=== PATIENT | female | born 1980 | race Caucasian/White ===

== ENCOUNTER 2016-05-25 08:06 | Emergency (ER) ==
[2016-05-25 08:14] VITALS: BP 142/88
--- NOTE | 2016-05-25 08:31 | PROVIDER DOCUMENTATION ---
[facility] General - General Chief Complaint: Sore Throat Stated Complaint: SORE THROAT Time Seen by Provider: 05/25/16 08:25 Source: patient Allergies/Adverse Reactions: Patient Allergies Allergy/AdvReac Type Severity Reaction Status Date / Time No Known Allergies Allergy Verified 03/31/15 07:10 Home Medications: Hctz 25 mg PO DAILY 03/31/15 Lamotrigine [Lamictal] 100 mg PO DAILY 03/31/15 Topiramate [Topamax] 100 mg PO DAILY 03/31/15 Venlafaxine E.r. [Effexor Xr] 75 mg PO DAILY 03/31/15 - History of Present Illness-EENT General Nature of Presenting Problem: thursday got sick cough phlegm laryngitis EENT Location: reports: ear (L), throat Quality of Pain: reports: aching Severity: reports: moderate Onset/Duration: reports: 4 days ago Timing: reports: still present Prearrival Treatment: Initiated over the counter meds Associated Symptoms: reports: cough, fever, malaise, nasal congestion/drainage, sore throat, voice change Locality of Occurance: Home Similar Symptoms Previously?: Yes Recently seen or treated by another doctor?: No Review of Systems - Adult - REVIEW OF SYSTEMS - ADULT Constitutional: reports: chills, fever. denies: night sweats Eyes: denies: discharge, dry eyes, eye pain, redness Ears, Nose, Mouth & Throat: reports: sinus problem, hoarseness, throat pain Cardiovascular: reports: chest pain. denies: palpitations Respiratory: reports: cough, excessive sputum production, shortness of breath, wheezing Gastrointestinal: denies: abdominal pain, nausea, vomiting Genitourinary: denies: dysuria, frequency, hematuria Musculoskeletal: reports: joint pain, muscle aches Integumentary: reports: no symptoms reported Neurological: reports: headache/migraines Endocrine: reports: no symptoms reported Hematologic/Lymphatic: reports: no symptoms reported Allergic/Immunologic: reports: no symptoms reported. denies: allergic rhinitis , asthma Past History - Adult - PAST MEDICAL HISTORY-ADULT Review of Records: reports: Nursing Assessment Review, Medications Reviewed, Social history reviewed & non-contributory. Major Childhood Illnesses: reports: denies history Cardiovascular: reports: HTN Respiratory: reports: denies history Gastrointestinal: reports: denies history Obstetrical/Gynecological: reports: denies history Genitourinary: reports: denies history Musculoskeletal: reports: denies history Neurological: reports: Seizures/Epilepsy Psychiatric: reports: bipolar Endocrine/Immune: reports: denies history Other Conditions: reports: denies history - PRIOR SURGERIES/PROCEDURES Surgical/Procedure History: reports: hysterectomy - FAMILY HISTORY Family History: reviewed, not pertinent - SOCIAL HISTORY Smoking: cigarettes Physical Exam- EENT - Physical Exam EENT Initial Vital Signs Reviewed: Yes General Appearance: appears well, alert Eye Exam: bilateral eye: normal inspection, PERRL, EOMI Ear Exam: bilateral ear: auricle normal, canal normal, TM normal Nasal Exam: normal inspection Throat Exam: voice changes. negative: maxillary swelling, pharynx swelling, tonsillar exudate, tonsillar swelling, uvula swelling Neck: supple Respiratory: lungs clear Cardiovascular: regular rate, rhythm Abdominal Exam: soft Back Exam: normal inspection Extremity: normal range of motion Integumentary: normal color, normal turgor Neurologic: grossly normal Psych/Mental Status: normal mood/affect Departure - Departure Time of Disposition Order: 08:31 DIAGNOSIS: Laryngitis URI (upper respiratory infection) Qualifiers: URI type: unspecified viral URI Qualified Code(s): J06.9 - Acute upper respiratory infection, unspecified; B97.89 - Other viral agents as the cause of diseases classified elsewhere Disposition: HOME 01 Certified Medical Emergency: Emergent Condition: Stable Additional Instructions: ED Follow Up Instructions: You have been treated by a care provider in the Emergency Department. These instructions are being provided to you so you can have an understanding of how to care for yourself upon discharge. Upon discharge from the Emergency Department, you are responsible for making arrangements for follow-up care by a physician of your choice. Take all prescribed medications as directed. Return to the Emergency Department immediately for any new or worsening symptoms. You may call the Physician Referral phone number at [phone] to obtain a list of Physicians who are taking new patients. Prescriptions: Guaifenesin/Codeine [Robitussin-AC] 10 ml PO Q4H PRN PRN #4 oz PRN Reason: Cough Amoxicillin 875 mg PO BID #20 tablet
== END 2016-05-25 09:02 | disposition home or self-care (01) ==
LOC: P.ED 08:06
DX: J06.9 Acute upper respiratory infection, unspecified (principal); B97.89 Other viral agents as the cause of diseases classified elsewhere; J04.0 Acute laryngitis; J02.9 Acute pharyngitis, unspecified; H92.02 Otalgia, left ear; R05 Cough; R09.3 Abnormal sputum; R50.9 Fever, unspecified; R53.81 Other malaise; R09.81 Nasal congestion; R49.0 Dysphonia; R07.9 Chest pain, unspecified; R06.02 Shortness of breath; R06.2 Wheezing; M79.1 Myalgia; R51 Headache; I10 Essential (primary) hypertension; R56.9 Unspecified convulsions; F31.9 Bipolar disorder, unspecified; Z79.899 Other long term (current) drug therapy
CPT/HCPCS: 87081; 87430; 99283